=== PATIENT | female | born 1980 | race Caucasian/White ===

== ENCOUNTER 2017-01-08 09:11 | Emergency (ER) | payer OTHER ==
[~2017-01-08 09:11] MED LIST: ALPRAZOLAM PO; DEPAKOTE PO; FOLIC ACID PO; GEODAN PO; IBUPROFEN PO; INDOMETHACIN50 MG PO; KEPPRA500 M1 PO; KEPPRA750 MG PO; MOBIC15 MG PO; PREDNISONE5 MG PO; PRENATAL1 TA1; REQUIP1 MG PO; SYNTHROID PO; TOPAMAX PO; VITAMIN D50000 UNIT PO; [UNRECOGNIZED DRUG - OTHER] PO
== END 2017-01-08 10:45 | disposition home or self-care (01) ==
LOC: SED 09:11
DX: S46.912A Strain of unspecified muscle, fascia and tendon at shoulder and upper arm level, left arm, initial encounter (principal); M06.9 Rheumatoid arthritis, unspecified; R56.9 Unspecified convulsions; F17.200 Nicotine dependence, unspecified, uncomplicated; Z98.51 Tubal ligation status; Z98.890 Other specified postprocedural states; Z79.899 Other long term (current) drug therapy; Z91.040 Latex allergy status; Z88.8 Allergy status to other drugs, medicaments and biological substances; X58.XXXA Exposure to other specified factors, initial encounter
CPT/HCPCS: 96372; 99283; J1100